=== PATIENT | male | born 1950 | race Caucasian/White ===

== ENCOUNTER 2016-07-23 10:26 | Inpatient (IN) | payer BC, OTHER ==
[~2016-07-23] VITALS: Ht 175.3 cm; Wt 73.9 kg
[~2016-07-23 10:26] MED LIST: FOLIC ACID; LAC15L PO; LANTANOPROST; NEU300 PO; PEP20 PO; PRO40 PO; TRUOS; VIT B12; XIFAXAN PO
[2016-07-23 13:23] LABS: BASOPHIL % 0.3 % (0-2)
[2016-07-23 13:24] LABS: PLATELET COUNT 80 x10^3mcL (130-400); RED CELL DISTRIBUTION WIDTH 15.1 % (11.5-14.5)
[2016-07-23 13:32] LABS: UA SPECIFIC GRAVITY 1.025 (1.005-1.035); microscopic required? YES; urine erythrocyte TRACE (NEGATIVE)
[2016-07-23 13:47] LABS: ALKALINE PHOSPHATASE 132 U/L (46-116); ALT/SGPT 34 U/L (16-63); AST/SGOT 71 U/L (15-37); BILIRUBIN TOTAL 2.1 mg/dL (0.20-1.00); CALCIUM 8.5 mg/dL (8.5-10.1); CARBON DIOXIDE 26.4 mmol/L (21-32); CHLORIDE SERUM 106 mmol/L (98-107); GFR1 > 60 mL/min; GLUCOSE SERUM 124 mg/dL (74-106); POTASSIUM SERUM 3.3 mmol/L (3.5-5.1); SODIUM SERUM 141 mmol/L (136-145); TOTAL PROTEIN, SERUM 7.2 g/dL (6.4-8.2)
[2016-07-23] MEDS ORDERED: DORZOLAMIDE HYD10 M2 OU (14:43)
[2016-07-23] MEDS ORDERED: DONEPEZIL HYDRO10 M2 PO (14:44)
[2016-07-23] MEDS ORDERED: XIFAXAN550 M1 PO (14:45)
[2016-07-23] MEDS ORDERED: ALPHAGAN P5 ML OU (14:45)
[2016-07-23] MEDS ORDERED: LATANOPROST2.5 ML OU (14:46)
[2016-07-23 15:27] LABS: CHOLESTEROL/HDL RATIO 1.9
[2016-07-23 15:34] LABS: FREE T4 1.03 ng/dL (0.76-1.46); FREE THYROXINE INDEX 2.3 ug/dL (1.4-4.5)
[2016-07-23 17:06] LABS: AMPHETAMINE QUAL UR NONE DETECTED (NEG <=1000)
[2016-07-23 18:04] LABS: T3 TOTAL 0.73 ng/mL
[2016-07-23 22:00] VITALS: BP 105/57
[2016-07-24 06:40] LABS: RED CELL DISTRIBUTION WIDTH 14.4 % (11.5-14.5)
[2016-07-24 06:53] VITALS: BP 103/50
[2016-07-24 06:58] LABS: CALCIUM 7.8 mg/dL (8.5-10.1); CARBON DIOXIDE 23.3 mmol/L (21-32); CHLORIDE SERUM 109 mmol/L (98-107); CREATININE SERUM 0.8 mg/dL (0.7-1.3); GFR1 > 60 mL/min; GLUCOSE SERUM 75 mg/dL (74-106); MAGNESIUM 1.6 mg/dL (1.8-2.4); PHOSPHOROUS 3.5 mg/dL (2.5-4.9); POTASSIUM SERUM 4.1 mmol/L (3.5-5.1); SODIUM SERUM 141 mmol/L (136-145)
[2016-07-24 08:05] LABS: BASOPHIL % 4.1 % (0-2); PLATELET COUNT 59 x10^3mcL (130-400)
[2016-07-24 09:52] VITALS: BP 117/62
== END 2016-07-24 11:18 | disposition left against medical advice (07) | DRG 443 ==
LOC: ED 10:26 → DU 14:38
PROVIDERS: Emergency Medicine; ADMIT Family Medicine
DX: K72.90 Hepatic failure, unspecified without coma (principal); K74.60 Unspecified cirrhosis of liver; R74.0 Nonspecific elevation of levels of transaminase and lactic acid dehydrogenase [LDH]; E87.6 Hypokalemia; D64.9 Anemia, unspecified; D69.6 Thrombocytopenia, unspecified; R07.9 Chest pain, unspecified; Z53.29 Procedure and treatment not carried out because of patient's decision for other reasons; Z79.899 Other long term (current) drug therapy; Z80.3 Family history of malignant neoplasm of breast; Z80.8 Family history of malignant neoplasm of other organs or systems; Z81.4 Family history of other substance abuse and dependence; Z87.891 Personal history of nicotine dependence
CPT/HCPCS: 80307; 83880; 84439; C9113; J2270; J3010; J7030; Q0092

== ENCOUNTER 2018-07-01 22:22 | Emergency (ER) | payer BC, OTHER ==
[~2018-07-01] VITALS: Ht 175.3 cm; Wt 75.7 kg
[~2018-07-01 22:22] MED LIST changes: +ALPHAGAN P5 ML OU; +DONEPEZIL HYDRO10 M2 PO; +DORZOLAMIDE HYD10 M2 OU; +LATANOPROST2.5 ML OU; +XIFAXAN550 M1 PO
[2018-07-01 22:54] VITALS: Ht 175.3 cm; Wt 75.7 kg
[2018-07-02 01:00] LABS: BASOPHIL % 0.2 % (0-2)
[2018-07-02 01:01] LABS: PLATELET COUNT 95 x10^3mcL (130-400); RED CELL DISTRIBUTION WIDTH 15.4 % (11.5-14.5)
[2018-07-02 02:35] VITALS: BP 121/77
== END 2018-07-02 02:35 | disposition home or self-care (01) ==
LOC: ED 22:22
PROVIDERS: Emergency Medicine
DX: K91.840 Postprocedural hemorrhage of a digestive system organ or structure following a digestive system procedure (principal); R03.0 Elevated blood-pressure reading, without diagnosis of hypertension
CPT/HCPCS: 36415

== ENCOUNTER 2019-01-24 17:41 | Emergency (ER) | payer OTHER | END 2019-01-24 17:54 | disposition left against medical advice (07) | LOC: ED 17:41 | DX: Z53.21 Procedure and treatment not carried out due to patient leaving prior to being seen by health care provider (principal) ==